=== PATIENT | female | born 1970 | race Two or more races ===

== ENCOUNTER 2016-10-25 15:07 | Emergency (ER) | payer MEDICAID, OTHER ==
[~2016-10-25] VITALS: Ht 160 cm; Wt 81.6 kg
[~2016-10-25 15:07] MED LIST: NORPTMEDS CO
[2016-10-25 16:00] VITALS: BP 129/66
== END 2016-10-25 17:49 | disposition home or self-care (01) ==
LOC: ER 15:11
DX: J20.9 Acute bronchitis, unspecified (principal); J02.9 Acute pharyngitis, unspecified

== ENCOUNTER 2016-11-28 18:50 | Emergency (ER) | payer OTHER ==
[~2016-11-28] VITALS: Ht 160 cm; Wt 74.8 kg
[2016-11-28 19:11] VITALS: BP 160/77
[2016-11-28 20:00] LABS: Albumin 3.6 g/dL (3.4-5.0); BUN/Creatinine Ratio 26.5; Basophils # (auto) 0 uL; Calcium 8.2 mg/dL (8.5-10.1); Eosinophils # (auto) 0.1 uL; Eosinophils % (auto) 2.6 % (0.0-7.0); Hematocrit 40.3 % (36.0-46.0); Hemoglobin 12.8 g/dL (12.2-16.2); Lymphocytes # (auto) 1.5 uL; Lymphocytes % (auto) 36.1 % (10.0-50.0); Magnesium 2.3 mg/dL (1.6-2.6); Mean Corpuscular Hemoglobin 29.7 pg (28.0-32.0); Mean Corpuscular Hgb Conc. 31.8 g/dL (32.0-36.0); Mean Corpuscular Volume 93.6 fL (80.0-100.0); Mean Platelet Volume 7.7 fL (7.4-10.4); Monocytes # (auto) 0.3 uL; Monocytes % (auto) 6.7 % (0.0-12.0); Neutrophils # (auto) 2.2 uL; Neutrophils % (auto) 53.6 % (37.0-80.0); Platelet Count (auto) 298 10^3/uL (140-450); Potassium 3.7 mmol/L (3.5-5.1); Red Cell Distribution Width 13.3 % (11.6-16.0); White Blood Cell 4.2 10^3/uL (4.4-10.8)
[2016-11-28 20:03] LABS: Bilirubin, Total 0.4 mg/dL (0.2-1.0); Total Protein 6.8 g/dL (6.4-8.2)
== END 2016-11-29 01:05 | disposition left against medical advice (07) ==
LOC: ER 18:52
DX: I10 Essential (primary) hypertension (principal); Z53.21 Procedure and treatment not carried out due to patient leaving prior to being seen by health care provider
CPT/HCPCS: 36415; 80053; 83735; 84484; 85025; 93005

== ENCOUNTER 2016-11-29 12:46 | Emergency (ER) | payer OTHER ==
[~2016-11-29] VITALS: Ht 160 cm; Wt 81.9 kg
[2016-11-29 14:15] VITALS: BP 157/77
== END 2016-11-29 14:36 | disposition home or self-care (01) ==
LOC: ER 12:53
DX: I10 Essential (primary) hypertension (principal); F41.9 Anxiety disorder, unspecified